=== PATIENT | female | born 1990 | race Caucasian/White ===

== ENCOUNTER 2020-05-15 16:32 | Emergency (ER) | payer MEDICAID, OTHER ==
[~2020-05-15] VITALS: Ht 162.6 cm; Wt 75.0 kg
[~2020-05-15 16:32] MED LIST: CLIN-26 PO; FOLI0.4T6 PO; HYDR-4383 PO; IBUP-1986 PO; METH-360 PO; NAPR-1154 PO; NO HOME MEDS; OFLO5DRO5 LEFT EAR
[2020-05-15 18:25] LABS: CLARITY,URINE SLIGHTLY CLOUDY (Clear); COLOR,URINE YELLOW (Yellow); GLUCOSE, URINE NEGATIVE (Neg); KETONES,URINE NEGATIVE (Neg); LEUKOCYTE ESTERASE ,URINE NEGATIVE (Neg); NITRITES, URINE NEGATIVE (Neg); OCCULT BLOOD,URINE TRACE-INTACT (Neg); PROTEIN,URINE NEGATIVE (Neg); UROBILINOGEN,URINE 0.2 E.U/dL (0.2-1.0)
[2020-05-15 18:26] LABS: UA COLLECTION TYPE CLN CATCH MIDSTREAM; URINE HCG NEGATIVE (NEG)
[2020-05-15 18:33] LABS: SQUAMOUS EPITHELIAL CELL,UR MANY /LPF (FEW)
[2020-05-15 18:34] LABS: BACTERIA,URINE 2+ /HPF (Neg); MUCUS STRANDS FEW /LPF (Neg); RBC,URINE 0-2 /HPF (0-2); WBC,URINE 0-4 /HPF (0-4)
[2020-05-15 18:40] LABS: BASOPHILS # (AUTO) 0.1 X10'3 (0-0.2); EOSINOPHILS # (AUTO) 0.1 X10'3 (0-0.9); EOSINOPHILS % (AUTO) 1.5 % (0-6); HEMOGLOBIN 14.2 g/dl (12.0-16.0); MONOCYTES # (AUTO) 0.6 X10'3 (0-0.9)
[2020-05-15] MEDS ORDERED: famotidine 20mg tablet PO ONE (18:40)
[2020-05-15 18:41] LABS: BASOPHILS % (AUTO) 0.8 % (0-1); HEMATOCRIT 42.3 % (35.0-45.0); LYMPHOCYTES % (AUTO) 23.2 % (21-51); MEAN CORPUSCULAR HEMOGLOBIN 31.4 PG (27.0-31.0); MEAN CORPUSCULAR HGB CONC 33.6 g/dL (33.0-36.5); MEAN CORPUSCULAR VOLUME 93.6 FL (78-98); MEAN PLATELET VOLUME 8.9 FL (7.4-10.4); MONOCYTES % (AUTO) 6.6 % (2-12); NEUTROPHILS # (AUTO) 5.9 X10'3 (1.8-7.7); NEUTROPHILS % (AUTO) 67.9 % (42-75); PLATELET COUNT 307 X10'3 (140-440); RED BLOOD COUNT 4.52 X10'6 (4.20-5.60); RED CELL DISTRIBUTION WIDTH 13.2 % (11.5-14.5); WHITE BLOOD COUNT 8.7 X10'3 (4.5-11.0)
[2020-05-15 18:58] LABS: ALANINE AMINOTRANSFERASE 31 U/L (12-78); ALBUMIN 3.9 G/DL (3.4-5.0); ALKALINE PHOSPHATASE 71 IU/L (46-116); ANION GAP 11 (8-16); ASPARTATE AMINO TRANSFERASE 21 U/L (10-37); BILIRUBIN,TOTAL 0.2 MG/DL (0.1-1.0); BLOOD UREA NITROGEN 13 MG/DL (7-18); BUN/CREATININE RATIO 15.7 (6.6-38.0); CALCIUM 9.2 MG/DL (8.5-10.1); CHLORIDE 105 MMOL/L (99-107); CREATININE 0.83 MG/DL (0.40-0.90); GLUCOSE 105 MG/DL (70-104); POTASSIUM 4.2 MMOL/L (3.5-5.1); SODIUM 141 MMOL/L (135-145); TOTAL CARBON DIOXIDE 24.9 MMOL/L (24-32); eGFR 81 ML/MIN
[2020-05-15 19:25] VITALS: BP 115/78
== END 2020-05-15 19:28 | disposition home or self-care (01) ==
LOC: ER 16:32
DX: R07.89 Other chest pain (principal); R05 Cough; I10 Essential (primary) hypertension; F12.90 Cannabis use, unspecified, uncomplicated; Z72.89 Other problems related to lifestyle; Z56.0 Unemployment, unspecified; Z88.1 Allergy status to other antibiotic agents; Z79.2 Long term (current) use of antibiotics; Z79.899 Other long term (current) drug therapy
CPT/HCPCS: 36415; 71045; 80053; 81001; 81025; 83880; 84484; 85025; 93005; 99285

== ENCOUNTER 2020-06-16 10:58 | Emergency (ER) | payer SELFPAY ==
[~2020-06-16] VITALS: Ht 162.6 cm; Wt 72.7 kg
[2020-06-16 11:03] VITALS: BP 134/92
[2020-06-16] MEDS ORDERED: CLIN300C71 PO (13:32)
[2020-06-16] MEDS ORDERED: AZIT-63 PO (21:44)
== END 2020-06-16 13:44 | disposition home or self-care (01) ==
LOC: ER 10:59
DX: J02.0 Streptococcal pharyngitis (principal); R50.9 Fever, unspecified; I10 Essential (primary) hypertension; F12.90 Cannabis use, unspecified, uncomplicated; Z72.89 Other problems related to lifestyle; Z56.0 Unemployment, unspecified; Z88.1 Allergy status to other antibiotic agents; Z79.2 Long term (current) use of antibiotics; Z79.899 Other long term (current) drug therapy
CPT/HCPCS: 99283

== ENCOUNTER 2020-06-16 20:25 | Emergency (ER) | payer SELFPAY ==
[~2020-06-16] VITALS: Ht 162.6 cm; Wt 72.0 kg
[~2020-06-16 20:25] MED LIST changes: +CLIN300C71 PO
[2020-06-16] MEDS ORDERED: dexamethasone 4mg/ml inj IV ONE (21:35)
[2020-06-16] MEDS ORDERED: normal saline 1000ml 1,000 ML IV ONE (21:35)
[2020-06-16] MEDS ORDERED: ketorolac trometh. 30mg/ml inj. IV ONE (21:35)
[2020-06-16] MEDS ORDERED: acetaminophen 325mg tablet PO ONE (21:35)
[2020-06-16] MEDS ORDERED: AZIT-63 PO (21:44)
[2020-06-16] MEDS ORDERED: azithromycin/NS 500mg/250ml 250 ML IV ONE (21:45)
--- NOTE | 2020-06-16 22:16 | NUR ---
Patient resting comfortably on gurney, IV antibiotics infusing
[2020-06-16 23:32] VITALS: BP 115/75
== END 2020-06-16 23:35 | disposition home or self-care (01) ==
LOC: ER 20:26
DX: J02.9 Acute pharyngitis, unspecified (principal); I10 Essential (primary) hypertension; F12.90 Cannabis use, unspecified, uncomplicated; Z72.89 Other problems related to lifestyle; Z56.0 Unemployment, unspecified; Z88.1 Allergy status to other antibiotic agents; Z79.2 Long term (current) use of antibiotics; Z79.899 Other long term (current) drug therapy
CPT/HCPCS: 96365; 96375; 99284; J0456; J1100; J1885; J7030

== ENCOUNTER 2020-09-05 00:41 | Emergency (ER) | payer SELFPAY ==
[~2020-09-05] VITALS: Ht 162.6 cm; Wt 75.0 kg
[~2020-09-05 00:41] MED LIST changes: -CLIN300C71 PO
[2020-09-05 00:51] VITALS: BP 138/96
[2020-09-05 01:09] LABS: URINE HCG NEGATIVE (NEG)
[2020-09-05 01:44] LABS: CLARITY,URINE SLIGHTLY CLOUDY (Clear); COLOR,URINE YELLOW (Yellow); GLUCOSE, URINE NEGATIVE (Neg); KETONES,URINE NEGATIVE (Neg); LEUKOCYTE ESTERASE ,URINE NEGATIVE (Neg); NITRITES, URINE NEGATIVE (Neg); OCCULT BLOOD,URINE NEGATIVE (Neg); PH,URINE 6.5 (4.8-8.0); PROTEIN,URINE NEGATIVE (Neg)
[2020-09-05 01:49] LABS: UA COLLECTION TYPE CLN CATCH MIDSTREAM
[2020-09-05 01:52] LABS: BACTERIA,URINE 3+ /HPF (Neg); MUCUS STRANDS FEW /LPF (Neg); RBC,URINE NONE SEEN /HPF (0-2); SQUAMOUS EPITHELIAL CELL,UR MANY /LPF (FEW); WBC,URINE 0-4 /HPF (0-4)
[2020-09-05] MEDS ORDERED: ketorolac trometh. 30mg/ml inj. IM ONE (02:50)
[2020-09-05] MEDS ORDERED: HYDROcodone/acetaminophen 10/325mg tab PO ONE (02:55)
[2020-09-05] MEDS ORDERED: HYDR-3972 PO (02:57)
== END 2020-09-05 03:12 | disposition home or self-care (01) ==
LOC: ER 00:41
DX: M54.5 Low back pain (principal); I10 Essential (primary) hypertension; F17.200 Nicotine dependence, unspecified, uncomplicated; F12.90 Cannabis use, unspecified, uncomplicated; Z72.89 Other problems related to lifestyle; Z56.0 Unemployment, unspecified; Z88.1 Allergy status to other antibiotic agents; Z79.2 Long term (current) use of antibiotics; Z79.899 Other long term (current) drug therapy
CPT/HCPCS: 81001; 81025; 87088; 96372; 99283; J1885

== ENCOUNTER 2020-09-18 17:10 | Emergency (ER) | payer SELFPAY ==
[~2020-09-18] VITALS: Ht 162.6 cm; Wt 85.1 kg
[~2020-09-18 17:10] MED LIST changes: +HYDR-3972 PO
[2020-09-18 17:14] VITALS: BP 129/85
[2020-09-18] MEDS ORDERED: ketorolac tromethamine 15mg/ml inj. IM ONE (20:15)
[2020-09-18] MEDS ORDERED: ondansetron 4mg rapidly disintigrating tab PO ONE (20:15)
[2020-09-18] MEDS ORDERED: HYDROcodone/acetaminophen 5mg/325mg tablet PO ONE (20:15)
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
== END 2020-09-18 20:48 | disposition home or self-care (01) ==
LOC: ER 17:10
DX: R07.81 Pleurodynia (principal); M54.89 Other dorsalgia; I10 Essential (primary) hypertension; F12.90 Cannabis use, unspecified, uncomplicated; Z72.89 Other problems related to lifestyle; Z56.0 Unemployment, unspecified; Z88.1 Allergy status to other antibiotic agents; Z79.2 Long term (current) use of antibiotics; Z79.899 Other long term (current) drug therapy
CPT/HCPCS: 71046; 96372; 99284; J1885

== ENCOUNTER 2020-11-16 19:40 | Emergency (ER) | payer SELFPAY ==
[~2020-11-16 19:40] MED LIST changes: -HYDR-3972 PO
--- NOTE | 2020-11-16 21:16 | NUR ---
THIS PATIENT HAS NOT BEEN IN LOBBY DURING THE LAST TWO HOURS.
== END 2020-11-16 22:14 | disposition left against medical advice (07) ==
LOC: ER 19:41
DX: M25.519 Pain in unspecified shoulder (principal); Z53.21 Procedure and treatment not carried out due to patient leaving prior to being seen by health care provider

== ENCOUNTER 2020-12-09 14:06 | Emergency (ER) | payer OTHER ==
[~2020-12-09] VITALS: Ht 162.6 cm; Wt 77.3 kg
[2020-12-09 14:16] VITALS: BP 127/98
== END 2020-12-09 15:17 | disposition left against medical advice (07) ==
LOC: ER 14:06
DX: R07.89 Other chest pain (principal); Z53.21 Procedure and treatment not carried out due to patient leaving prior to being seen by health care provider
CPT/HCPCS: 82948; 93005

== ENCOUNTER 2022-07-26 19:21 | Emergency (ER) | payer MEDICAID ==
[~2022-07-26] VITALS: Ht 162.6 cm; Wt 75.0 kg
[2022-07-26 19:41] VITALS: BP 141/99
== END 2022-07-26 23:30 | disposition left against medical advice (07) ==
LOC: ER 19:21
DX: R57.9 Shock, unspecified (principal); R53.1 Weakness; R52 Pain, unspecified; Z53.21 Procedure and treatment not carried out due to patient leaving prior to being seen by health care provider
CPT/HCPCS: 99281

== ENCOUNTER 2022-10-13 10:45 | Emergency (ER) | payer MEDICAID ==
[~2022-10-13] VITALS: Ht 162.6 cm; Wt 80.6 kg
[2022-10-13 10:53] VITALS: BP 129/83; PULSE 93; RESP 16; TEMP 98.6; O2SAT 98
[2022-10-13 11:26] LABS: URINE HCG POSITIVE (NEG)
== END 2022-10-13 14:04 | disposition home or self-care (01) ==
LOC: ER 10:46
DX: O46.8X1 Other antepartum hemorrhage, first trimester (principal); I10 Essential (primary) hypertension; F12.10 Cannabis abuse, uncomplicated; Z88.8 Allergy status to other drugs, medicaments and biological substances; Z88.1 Allergy status to other antibiotic agents; Z79.899 Other long term (current) drug therapy
CPT/HCPCS: 36415; 76801; 81025; 84702; 99284

== ENCOUNTER 2022-10-18 09:46 | Emergency (ER) | payer MEDICAID ==
[~2022-10-18] VITALS: Ht 162.6 cm; Wt 82.8 kg
[2022-10-18 09:56] VITALS: BP 130/79; PULSE 90; RESP 16; TEMP 98.1; O2SAT 98
== END 2022-10-18 13:30 | disposition left against medical advice (07) ==
LOC: ER 09:47
DX: K08.89 Other specified disorders of teeth and supporting structures (principal); Z53.21 Procedure and treatment not carried out due to patient leaving prior to being seen by health care provider
CPT/HCPCS: 99281

== ENCOUNTER 2022-10-28 12:48 | Emergency (ER) | payer MEDICAID ==
[~2022-10-28] VITALS: Ht 162.6 cm; Wt 76.8 kg
[2022-10-28 12:51] VITALS: BP 152/91; PULSE 99; RESP 16; TEMP 98.5; O2SAT 97
== END 2022-10-28 15:05 | disposition left against medical advice (07) ==
LOC: ER 12:49
DX: T78.1XXA Other adverse food reactions, not elsewhere classified, initial encounter (principal); Z53.21 Procedure and treatment not carried out due to patient leaving prior to being seen by health care provider; T78.49XA Other allergy, initial encounter; R60.9 Edema, unspecified; X58.XXXA Exposure to other specified factors, initial encounter
CPT/HCPCS: 99281

== ENCOUNTER 2022-12-24 08:48 | Emergency (ER) | payer MEDICAID ==
[~2022-12-24] VITALS: Ht 162.6 cm; Wt 80.1 kg
[2022-12-24 08:53] VITALS: PULSE 114
[2022-12-24 10:02] VITALS: BP 124/80; RESP 18; TEMP 97.7; O2SAT 99
--- NOTE | 2022-12-24 10:17 | NUR ---
I reviewed the assessment and agreed, Juan Cotton RN
== END 2022-12-24 10:06 | disposition home or self-care (01) ==
LOC: ER 08:48
DX: O26.892 Other specified pregnancy related conditions, second trimester (principal); Z3A.16 16 weeks gestation of pregnancy
CPT/HCPCS: 76805; 99284

== ENCOUNTER 2024-05-14 11:38 | Emergency (ER) | payer MEDICAID ==
[~2024-05-14] VITALS: Ht 167.6 cm; Wt 73.8 kg
[2024-05-14 12:03] VITALS: BP 149/81; PULSE 118; RESP 18; TEMP 98.5; O2SAT 98
== END 2024-05-14 18:15 | disposition left against medical advice (07) ==
LOC: ER 11:38
DX: O10.912 Unspecified pre-existing hypertension complicating pregnancy, second trimester (principal); F12.90 Cannabis use, unspecified, uncomplicated; Z56.0 Unemployment, unspecified; Z72.89 Other problems related to lifestyle; Z88.1 Allergy status to other antibiotic agents; Z79.1 Long term (current) use of non-steroidal anti-inflammatories (NSAID); Z79.899 Other long term (current) drug therapy; Z3A.16 16 weeks gestation of pregnancy
CPT/HCPCS: 99281

== ENCOUNTER 2024-07-27 00:49 | Emergency (ER) | payer MEDICAID ==
[~2024-07-27] VITALS: Ht 162.6 cm; Wt 65.5 kg
--- NOTE | 2024-07-27 01:53 | Physician Documentation ---
HPI ~ General Chief Complaint: Tooth Problem Stated Complaint: DENTAL PAIN Time Seen by MD: 01:52 Primary Medical Doctor: SILVERIO TORREZ History of Present Illness HPI Comment Patient presents to the emergency room with dental pain x3 days. She says she broke her right upper tooth three weeks ago and began hurting significantly three days ago. She says she did go to a dentist but was told they could not do anything until after she had her baby. She is currently 23 weeks Medication Reconciliation Allergies: Coded Allergies: Rho(D) immune globulin (Verified Allergy, Unknown, 07/27/24) edema amoxicillin (Verified Allergy, Unknown, RASH, 07/27/24) Scheduled Clindamycin HCl (Clindamycin HCl), 450 CAP PO TID Folic Acid* (Folic Acid*), 1 TAB PO DAILY Ibuprofen (Ibuprofen), 1 TAB PO Q8H Methocarbamol (Robaxin-750), 1 TAB PO Q12H Ofloxacin (Ofloxacin), 5 DROP LEFT EAR BID Scheduled PRN Hydrocodone/Acetaminophen ([place] 5-325 Tablet), 1 TABLET PO QID PRN for pain Naproxen (Naprosyn), 1 TABLET PO BID PRN for pain Miscellaneous Medications Home Med List (No Home Medications), (Reported) Past Medical History Past Medical History: Hypertension Past Surgical History: no surgical history Other Past Family History: Parents and grandparents had [place] at young age Alcohol Use: Occasionally Drug Use: marijuana Lives with: Family Lives In: Home Occupation: unemployed Review of Systems ROS All review of systems negative except as per HPI Physical Exam Vital Signs: Temperature: 98.6, Source: Temporal, Heart Rate: 105, Respiratory Rate: 15, BP: 125/88, Pulse Oximetry: 99, Weight: 65.450 Physical Exam General: Patient is awake, alert, oriented x4 in no acute distress Head: Normocephalic and atraumatic. Eyes: Conjunctival normal. EOMI. PERRL. ENT: Mucous membranes moist. Patient has a broken tooth on her right upper jaw with no abscess Neck: Supple, trachea is midline. Chest: Clear to auscultation bilaterally without rales, rhonchi, or wheezes. There is no accessory muscle use or retractions. Cardiac: RRR without murmurs, gallops, or rubs. Progress Results/Orders Results/Orders Orders - JUANCHO QUIROGA MD Ondansetron Disint. Tablet (Zofran Odt T (07/27/24 02:00) Clindamycin Capsule (Cleocin Capsule) (07/27/24 02:00) Vital Signs 07/27/24 00:54 Temp 98.6 Pulse 105 Resp 15 B/P (MAP) 125/88 Pulse Ox 99 Medical Decision Making Findings Patient presents to the emergency room for evaluation of dental pain as per HPI. Differentials include but are not limited to abscess, dental pain, malingering, clogged salivary duct. No evidence of abscess or facial swelling he had not feel emergent labs or imaging is necessary. We will treat for both pain and infection with instructions to follow up with her dentist. Departure Disposition: HOME / SELF CARE / HOMELESS Impression: Primary Impression: Toothache Condition: Stable Discharge Instructions: Dental Pain Additional Instructions: Continue to follow up with your dentist Referrals: NO PRIMARY CARE PROVIDER (PCP) Prescriptions Clindamycin (Cleocin ) 150 Mg Capsule 1 CAP PO Q8H for 10 Days, #30 CAP Prov: JUANCHO QUIROGA MD 07/27/24 Hydrocodone Bit/Acetaminophen 5/325 MG ([place] 5/325 MG) 5 Mg/325 Mg Tablet 1 TAB PO Q4-6 hours PRN for pain, #15 TAB Prov: JUANCHO QUIROGA MD 07/27/24 Education Educated: Patient Educated regarding: diagnosis, treatment, need for follow up Signature Scribe Signature: No scribe Attestation: The note accurately reflects work and decisions made by me.Juancho Quiroga MD 07/27/24 02:02 JUANCHO QUIROGA MD Jul 27, 2024 01:53
[2024-07-27] MEDS ORDERED: HYDR-3965 PO (02:01)
[2024-07-27] MEDS ORDERED: CLIN150C2 PO (02:01)
[2024-07-27] MEDS: ondansetron 4mg rapidly disintigrating tab PO ONE (02:05)
[2024-07-27] MEDS: clindamycin 150mg capsule PO ONE (02:05)
[2024-07-27] MEDS: HYDROcodone/acetaminophen 5mg/325mg tablet PO ONE (02:06)
[2024-07-27 02:15] VITALS: BP 138/80; PULSE 80; RESP 18; TEMP 98.2; O2SAT 99
== END 2024-07-27 02:21 | disposition home or self-care (01) ==
LOC: ER 00:49
DX: O99.612 Diseases of the digestive system complicating pregnancy, second trimester (principal); K08.89 Other specified disorders of teeth and supporting structures; F12.90 Cannabis use, unspecified, uncomplicated; Z88.1 Allergy status to other antibiotic agents; Z79.899 Other long term (current) drug therapy; Z56.0 Unemployment, unspecified; Z72.89 Other problems related to lifestyle; Z88.7 Allergy status to serum and vaccine; Z3A.23 23 weeks gestation of pregnancy
CPT/HCPCS: 99284

== ENCOUNTER 2024-08-13 09:49 | Emergency (ER) | payer MEDICAID ==
[~2024-08-13] VITALS: Ht 162.6 cm; Wt 78.0 kg
[~2024-08-13 09:49] MED LIST changes: +HYDR-3965 PO
[2024-08-13 09:51] VITALS: TEMP 98.2
[2024-08-13 10:30] VITALS: BP 119/75; PULSE 91; O2SAT 98
--- NOTE | 2024-08-13 10:36 | Physician Documentation ---
History of Present Illness ~ Chief Complaint: Allergic Reaction Stated Complaint: ALLERGIC REACTION Time Seen by MD: 10:17 Primary Medical Doctor: SILVERIO TORREZ HPI 33-year-old female presenting with some neck swelling and throat tightness that started about an hour ago. Patient states that she went outside in her garden and suddenly felt these symptoms. She does not know what may have caused them. Did not eat anything unusual. She did not come into contact with anything unusual. She states that the symptoms seem to be improved now. The patient is currently 29 weeks and is being treated for preeclampsia as well. She also has a history of high per thyroidism Graves disease which is being evaluated by a investment underwriter. Denies any chest pain, shortness of breath or any other associated symptoms. Medication Reconciliation Allergies: Coded Allergies: Rho(D) immune globulin (Verified Allergy, Unknown, 07/27/24) edema amoxicillin (Verified Allergy, Unknown, RASH, 07/27/24) Scheduled Clindamycin HCl (Clindamycin HCl), 450 CAP PO TID Folic Acid* (Folic Acid*), 1 TAB PO DAILY Ibuprofen (Ibuprofen), 1 TAB PO Q8H Methocarbamol (Robaxin-750), 1 TAB PO Q12H Ofloxacin (Ofloxacin), 5 DROP LEFT EAR BID Scheduled PRN Hydrocodone Bit/Acetaminophen 5/325 MG ([place] 5/325 MG), 1 TAB PO Q4-6 hours PRN for pain Hydrocodone/Acetaminophen ([place] 5-325 Tablet), 1 TABLET PO QID PRN for pain Naproxen (Naprosyn), 1 TABLET PO BID PRN for pain Miscellaneous Medications Home Med List (No Home Medications), (Reported) Discontinued Medications Clindamycin (Cleocin ), 1 CAP PO Q8H Discontinued Reason: Auto Discontinued Past Medical History Past Medical History: Hypertension Past Surgical History: no surgical history Other Past Family History: Parents and grandparents had [place] at young age Alcohol Use: Occasionally Drug Use: marijuana Lives with: Family Lives In: Home Occupation: unemployed Review of Systems All Other Systems at this time: Reviewed and Negative Physical Exam Vital Signs: Temperature: 98.2, Source: Temporal, Heart Rate: 121, Respiratory Rate: 20, BP: 145/90, Pulse Oximetry: 98, Weight: 77.950 Oxygen Flow Rate: 0 Physical Exam I have reviewed the triage vitals. CONST: Well developed and well nourished. In no acute distress HENT: Head Atraumatic EYES: Pupils are equal, round and reactive to light. Normal conjunctiva NECK: Normal range of motion. Supple. CARDIO: Normal rate and regular rhythm. No murmurs, rubs, or gallops. S1, S2. PULM/CHEST: No respiratory distress. Lungs clear to auscultation. No wheeze ABD: Soft and nontender. Nondistended. Bowel sounds normal. No guarding. : Exam deferred MSK: No edema. No deformity. NEURO: Alert and oriented to person, place and time. Moving all extremities SKIN: Warm and dry. PSYCH: Normal mood and affect. Good eye contact. Progress Results/Orders Results/Orders Completed Orders - SADIE SHAVER MD Loratadine Tablet (Claritin Tablet) (08/13/24 10:30) Prednisone Tablet (Prednisone Tablet) (08/13/24 10:30) Medications Received in ER Medications (Trade) Dose Ordered Sig/Nato Route PRN Reason Start Time Stop Time Status Last Admin Dose Admin (Claritin tablet) 10 mg ONCE ONCE PO 08/13/24 10:30 08/13/24 10:31 DC 08/13/24 10:38 10 MG Vital Signs 08/13/24 08/13/24 09:51 10:30 Temp 98.2 Pulse 121 91 Resp 20 15 B/P (MAP) 145/90 119/75 (90) Pulse Ox 98 98 O2 Flow Rate 0 Medical Decision Making Differential Diagnosis 33-year-old female presenting with a mild acute allergic reaction. On my assessment the patient is doing well. She only is minimally symptomatic now and much of the symptoms seem to be resolving on their own. She was medicated with some loratadine 10 mg which further resolved her symptoms. Her vitals are normal and she is 29 weeks as well. At this point in time she is stable and safe to be discharged home. I advised that she may continue [id number] antihistamines as needed. She has follow up with her OBGYN as well as her investment underwriter and primary care physician upcoming. I advised her to keep these appointments. Return to the ED with any acute worsening symptoms. Departure Disposition: 01 HOME / SELF CARE / HOMELESS Impression: Primary Impression: Acute allergic reaction Condition: Improved Discharge Instructions: Anaphylactic Reaction, Adult, [id number] Additional Instructions: Monitor her symptoms for improvement and resolution. You may continue [id number] antihistamines as needed. Follow up with your PCP, investment underwriter and OBGYN. Return to the ED with any acutely worsening symptoms. Referrals: NO PRIMARY CARE PROVIDER (PCP) SADIE SHAVER MD Aug 13, 2024 10:36
[2024-08-13] MEDS: predniSONE 20 mg tablet PO ONE (10:38)
[2024-08-13] MEDS: loratadine 10mg tablet PO ONE (10:38)
[2024-08-13 18:57] VITALS: RESP 15
== END 2024-08-13 19:01 | disposition home or self-care (01) ==
LOC: ER 09:50
DX: O26.893 Other specified pregnancy related conditions, third trimester (principal); T78.49XA Other allergy, initial encounter; O11.3 Pre-existing hypertension with pre-eclampsia, third trimester; F12.90 Cannabis use, unspecified, uncomplicated; Z56.0 Unemployment, unspecified; Z72.89 Other problems related to lifestyle; Z88.1 Allergy status to other antibiotic agents; Z79.899 Other long term (current) drug therapy; Z3A.29 29 weeks gestation of pregnancy; X58.XXXA Exposure to other specified factors, initial encounter
CPT/HCPCS: 99282; A6266; J7030; J7512

== ENCOUNTER 2024-10-10 00:29 | Emergency (ER) | payer MEDICAID ==
[~2024-10-10] VITALS: Ht 162.6 cm; Wt 78.9 kg
[~2024-10-10 00:29] MED LIST changes: -HYDR-3965 PO
[2024-10-10 00:33] VITALS: TEMP 98.5
[2024-10-10 01:39] VITALS: BP 111/77; PULSE 94; RESP 17; O2SAT 98
[2024-10-10] MEDS ORDERED: HYDR-3965 PO (01:53)
[2024-10-10] MEDS ORDERED: CLIN-26 PO (01:53)
--- NOTE | 2024-10-10 01:53 | Physician Documentation ---
HPI ~ General Chief Complaint: Tooth Problem Stated Complaint: DENTAL PAIN Time Seen by MD: 01:44 Primary Medical Doctor: clifton History of Present Illness HPI Comment Patient presents to the emergency room with dental pain in her right lower molar. Patient that has not been to the dentist for awhile and when she did go the dentist did not pull any teeth because patient is reportedly . She states she has taken ibuprofen and Tylenol for the pain. No fevers. No recent antibiotics. Medication Reconciliation Allergies: Coded Allergies: Rho(D) immune globulin (Verified Allergy, Unknown, 07/27/24) edema amoxicillin (Verified Allergy, Unknown, RASH, 07/27/24) Scheduled Clindamycin HCl (Clindamycin HCl), 450 CAP PO TID Folic Acid* (Folic Acid*), 1 TAB PO DAILY Ibuprofen (Ibuprofen), 1 TAB PO Q8H Methocarbamol (Robaxin-750), 1 TAB PO Q12H Ofloxacin (Ofloxacin), 5 DROP LEFT EAR BID Scheduled PRN Hydrocodone/Acetaminophen ([place] 5-325 Tablet), 1 TABLET PO QID PRN for pain Naproxen (Naprosyn), 1 TABLET PO BID PRN for pain Miscellaneous Medications Home Med List (No Home Medications), (Reported) Past Medical History Past Medical History: Hypertension Past Surgical History: no surgical history Other Past Family History: Parents and grandparents had [place] at young age Alcohol Use: Occasionally Drug Use: marijuana Lives with: Family Lives In: Home Occupation: unemployed Review of Systems ROS All review of systems negative except as per HPI Physical Exam Vital Signs: Temperature: 98.5, Source: Temporal, Heart Rate: 94, Respiratory Rate: 17, BP: 111/77, Pulse Oximetry: 98, Weight: 78.890 Oxygen Flow Rate: 0 Physical Exam General: Patient is awake, alert, oriented x4 in no acute distress Head: Normocephalic and atraumatic. Eyes: Conjunctival normal. EOMI. PERRL. ENT: Mucous membranes moist. Poor dentition. No appreciable abscess Neck: Supple, trachea is midline. Chest: Clear to auscultation bilaterally without rales, rhonchi, or wheezes. There is no accessory muscle use or retractions. Cardiac: RRR without murmurs, gallops, or rubs. Progress Results/Orders Results/Orders Vital Signs 10/10/24 10/10/24 00:33 01:39 Temp 98.5 Pulse 110 94 Resp 18 17 B/P (MAP) 128/88 111/77 (88) Pulse Ox 98 98 O2 Flow Rate 0 0 Medical Decision Making Findings Patient presents to the emergency room with chief complaint of dental pain. She is using ibuprofen and Tylenol. She has been advised to stop taking ibuprofen as she reports that as she is 37 weeks . I offered patient a dental block but she is declining as she states she is afraid of getting a needle in her mouth. Departure Disposition: HOME / SELF CARE / HOMELESS Impression: Primary Impression: Toothache Condition: Stable Discharge Instructions: Dental Pain Referrals: NO PRIMARY CARE PROVIDER (PCP) Prescriptions Hydrocodone Bit/Acetaminophen 5/325 MG ([place] 5/325 MG) 5 Mg/325 Mg Tablet 1-2 TAB PO Q4-6 hours PRN for pain, #7 TAB Prov: RHINA QUIROGA MD 10/10/24 Clindamycin HCl (Clindamycin HCl) 150 Mg Capsule 1 CAP PO Q8H for 10 Days, #30 CAP Prov: RHINA QUIROGA MD 10/10/24 Education Educated: Patient Educated regarding: diagnosis, treatment, need for follow up Signature Scribe Signature: No scribe Attestation: The note accurately reflects work and decisions made by me.Rhina Quiroga MD 10/10/24 01:53 RHINA QUIROGA MD Oct 10, 2024 01:53
== END 2024-10-10 02:29 | disposition home or self-care (01) ==
LOC: ER 00:29
DX: K08.89 Other specified disorders of teeth and supporting structures (principal); I10 Essential (primary) hypertension; F12.90 Cannabis use, unspecified, uncomplicated; Z88.0 Allergy status to penicillin
CPT/HCPCS: 99283

== ENCOUNTER 2024-12-14 01:17 | Emergency (ER) | payer MEDICAID ==
[~2024-12-14] VITALS: Ht 162.6 cm; Wt 72.7 kg
[2024-12-14 01:20] VITALS: BP 144/98; PULSE 90; RESP 16; O2SAT 98
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
[2024-12-14 01:47] VITALS: TEMP 97.6
== END 2024-12-14 01:50 | disposition home or self-care (01) ==
LOC: ER 01:18
DX: S00.83XA Contusion of other part of head, initial encounter (principal); I10 Essential (primary) hypertension; F12.90 Cannabis use, unspecified, uncomplicated; Z88.1 Allergy status to other antibiotic agents; Z79.899 Other long term (current) drug therapy; Z72.89 Other problems related to lifestyle; Z56.0 Unemployment, unspecified; X58.XXXA Exposure to other specified factors, initial encounter; Y93.89 Activity, other specified; Y92.89 Other specified places as the place of occurrence of the external cause; Y99.8 Other external cause status
CPT/HCPCS: 99282